=== PATIENT | male | born 1935 | race Caucasian/White ===

== ENCOUNTER 2016-09-22 10:29 | Day surgery (SDC) | payer MEDICARE, OTHER ==
[~2016-09-22] VITALS: Ht 198.1 cm; Wt 134.6 kg
[~2016-09-22 10:29] MED LIST: ALFU10TA2 OR; ASPI81 PO; CALTTAB10 PO; DOCU100T9 PO; EZET10 PO; FERR324T4 PO; FURO1TAB93 PO; LANTUSP SQ; LISI-360 PO; METO100T PO; NOVORP2 SC; OMEP20TA OR; PHEN100 PO; PLAV75TA OR; TAB-TAB PO; VITA500S3 SL
[2016-09-22] MEDS ORDERED: SODIUM CHLORIDE 0.9% FLUSH 10 ML FLUSH IV FLUSH PRN (11:00)
[2016-09-22] MEDS ORDERED: SODIUM BICARBONATE 100 MEQ in D5W 1000 ML IV SCH (11:00)
[2016-09-22 11:15] VITALS: BP 154/72; PULSE 58; RESP 18; TEMP 98.5; O2SAT 96
[2016-09-22 11:21] LABS: AUTOMATED NEUTROPHIL # 4.1 TH/MM3 (1.8-7.7); BASOPHIL # 0.1 TH/MM3 (0-0.2); BASOPHIL % 0.8 % (0.0-2.0); EOSINOPHIL # 0.2 TH/MM3 (0-0.4); HEMATOCRIT 36.5 % (39.0-51.0); HEMO FLAGS DIFF FINAL; LYMPH % 23.1 % (9.0-44.0); LYMPHOCYTE # 1.4 TH/MM3 (1.0-4.8); MEAN CELL VOLUME 91.3 FL (80.0-100.0); MEAN CORPUSCULAR HEMOGLOBIN 31.7 PG (27.0-34.0); MEAN CORPUSCULAR HGB CONC 34.7 % (32.0-36.0); NEUT % 65.1 % (16.0-70.0); PLATELET COUNT 164 TH/MM3 (150-450); RED CELL DISTRIBUTION WIDTH 13.6 % (11.6-17.2); WHITE BLOOD COUNT 6.2 TH/MM3 (4.0-11.0)
[2016-09-22] MEDS ORDERED: INSU100V2 SQ (11:27)
[2016-09-22] MEDS ORDERED: LANTUS2P SQ (11:27)
[2016-09-22] MEDS ORDERED: ALFU10TA2 PO (11:27)
[2016-09-22] MEDS ORDERED: ASPI1TAB69 PO (11:27)
[2016-09-22] MEDS ORDERED: METO50TA PO (11:27)
[2016-09-22] MEDS ORDERED: MULT1TAB84 PO (11:27)
[2016-09-22] MEDS ORDERED: LOSA100T PO (11:27)
[2016-09-22] MEDS ORDERED: ATOR40TA16 PO (11:27)
[2016-09-22] MEDS ORDERED: OMEP20TA PO (11:27)
[2016-09-22] MEDS ORDERED: ZETI10TA5 PO (11:27)
[2016-09-22] MEDS ORDERED: REFR0.5D9 EACH EYE (11:27)
[2016-09-22] MEDS ORDERED: CYAN100017 PO (11:27)
[2016-09-22] MEDS ORDERED: DILA100C PO (11:27)
[2016-09-22] MEDS ORDERED: FURO1TAB60 PO (11:27)
[2016-09-22 11:28] LABS: PROTHROMBIN TIME - PATIENT 10.9 SEC (9.8-11.6)
[2016-09-22 11:44] LABS: BICARBONATE 27.5 MEQ/L (21.0-32.0); POTASSIUM 4.4 MEQ/L (3.5-5.1)
[2016-09-22] MEDS ORDERED: IOHEXOL 350 MG/ML 50 ML BTL (for Cath Lab) OTHER ONE (13:35)
[2016-09-22] MEDS ORDERED: IOHEXOL 350 MG/ML 100 ML BTL (for Cath Lab) OTHER ONE (13:35)
[2016-09-22] MEDS ORDERED: MIDAZOLAM HCL 5 MG/5 ML VIAL ONE (13:37)
[2016-09-22] MEDS ORDERED: HEPARIN-NS/PF INJ 500 ML ONE (13:37)
--- NOTE | 2016-09-22 19:18 | MA ---
cc: MARTINEZ LEAHY DATE 09/22/2016 Angio report PREOPERATIVE DIAGNOSIS History of wounded bilateral lower extremities. POSTOPERATIVE DIAGNOSIS History of wounded bilateral lower extremities. PROCEDURE Aortogram and selective bilateral extremity arteriogram. PROCEDURE DETAILS I got access to the right common femoral artery using duplex ultrasound. I used the Seldinger technique and exchanged for a 5-Irish sheath and advanced an Omni flush catheter in the abdominal aorta and shot an AP aortogram. I pulled my catheter and shot pelvic oblique arteriograms. I then the left lower extremity with my catheter and then pulled the catheter over a wire and then selected at the right lower extremity. At the end of the procedure we had pulled the catheter out of the right groin and applied pressure. My findings were that the abdominal aorta was widely patent. The bilateral common internal and external iliac arteries appeared to be widely patent. The right common and profunda femoral arteries were patent. The right superficial femoral artery was patent. My catheter was just above the origin of the profunda and superficial femoral artery. The patient appeared to have a right popliteal artery that was patent. It should be noted that the patient did have a lesion at the takeoff of the SFA that was calcified but non-flow limiting. The patient had a single-vessel runoff to the right anterior tibial artery across the level of the ankle, although the patient was moving with restless leg syndrome which made it difficult to get good visualization of the pedal vessels. The left common femoral, profunda, superficial, and femoral arteries were widely patent. The left popliteal artery had a mild to moderate stenosis but did not appear to be flow-limiting. The patient had a single-vessel runoff through the left posterior tibial artery that crossed the level of the ankle. It should be noted that on the left side there was a small fistula noted at the left SFA but with the patient's history of DVT it does not appear to be that significant. 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 So in summary the patient had good inflow and runoff with a popliteal lesion on the left with a single-vessel runoff through the posterior tibial artery. 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 On the right side the patient had single-vessel runoff through the anterior tibial artery. It should be noted that there was movement during the exam. The patient had a history of restless leg syndrome, so the imaging especially on the right side might be suboptimal. DO MONICA Mariscal /4:46 PM /7:02 PM
[2016-09-22] MEDS ORDERED: SODIUM CHLORIDE FLUSH BID IV FLUSH SCH (21:00)
== END 2016-09-22 19:32 | disposition home or self-care (01) ==
LOC: HDOC 10:29 → HDIC 10:30 → HDOC 19:32
PROVIDERS: ATTEND Surgery
DX: I73.9 Peripheral vascular disease, unspecified (principal); I48.91 Unspecified atrial fibrillation; I10 Essential (primary) hypertension; E11.9 Type 2 diabetes mellitus without complications; Z79.01 Long term (current) use of anticoagulants; Z86.718 Personal history of other venous thrombosis and embolism
CPT/HCPCS: 75625; 75716; 80048; 85025; 85610; C1769; C1887; C1893; J1644; J2250; J3010; Q9967

== ENCOUNTER → 2017-10-20 | Outpatient (CLI) | payer MEDICARE, OTHER ==
[2017-10-20 11:41] LABS: BASOPHIL # 0.1 TH/MM3 (0-0.2); BASOPHIL % 0.7 % (0.0-2.0); EOSINOPHIL # 0.3 TH/MM3 (0-0.4); EOSINOPHIL % 4.4 % (0.0-4.0); HEMATOCRIT 36.3 % (39.0-51.0); HEMO FLAGS DIFF FINAL; HEMOGLOBIN 12.4 GM/DL (13.0-17.0); LYMPH % 23.2 % (9.0-44.0); LYMPHOCYTE # 1.8 TH/MM3 (1.0-4.8); MEAN CELL VOLUME 92.8 FL (80.0-100.0); MEAN CORPUSCULAR HEMOGLOBIN 31.7 PG (27.0-34.0); MEAN CORPUSCULAR HGB CONC 34.1 % (32.0-36.0); MEAN PLATELET VOLUME 8.1 FL (7.0-11.0); MONO % 7.2 % (0.0-8.0); MONOCYTE # 0.6 TH/MM3 (0-0.9); NEUT % 64.5 % (16.0-70.0); PLATELET COUNT 186 TH/MM3 (150-450); RED BLOOD COUNT 3.91 MIL/MM3 (4.50-5.90); RED CELL DISTRIBUTION WIDTH 13.8 % (11.6-17.2); WHITE BLOOD COUNT 7.8 TH/MM3 (4.0-11.0)
[2017-10-20 11:57] LABS: APTT (PATIENT) 27.2 SEC (24.3-30.1); INTERNATIONAL NORMALIZED RATIO 1.1 RATIO; PROTHROMBIN TIME - PATIENT 10.7 SEC (9.8-11.6)
[2017-10-20 12:07] LABS: ANION GAP 5 MEQ/L (5-15); BICARBONATE 27.8 MEQ/L (21.0-32.0); BLOOD UREA NITROGEN 32 MG/DL (7-18); CALCIUM 8.7 MG/DL (8.5-10.1); CHLORIDE 103 MEQ/L (98-107); GLOMERULAR FILTRATION RATE 53 ML/MIN (>89); GLUCOSE,FASTING 97 MG/DL (74-99); POTASSIUM 5.9 MEQ/L (3.5-5.1); SODIUM (NA) 136 MEQ/L (136-145)
[2017-10-20 12:09] LABS: BILIRUBIN, URINE NEG (NEG); BLOOD, URINE NEG (NEG); COMMENT (UR) CULT NOT INDICATED; CULTURE IF INDICATED CULT NOT INDICATED; GLUCOSE,URINE NEG (NEG); HYALINE CAST, URINE 5 /lpf (RARE); KETONE, URINE NEG (NEG); NITRITE,URINE NEG (NEG); PH, URINE 5.5 (5.0-8.5); SQUAMOUS EPITHELIAL CELL URINE 1 /hpf (0-5); URINE COLOR LIGHT-YELLOW (YELLW/STRAW); URINE LEUKOCYTE ESTERASE NEG (NEG)
== END ==
LOC: CPRE 10:49
DX: Z01.812 Encounter for preprocedural laboratory examination (principal); Z01.818 Encounter for other preprocedural examination; I65.22 Occlusion and stenosis of left carotid artery
CPT/HCPCS: 36415; 71046; 80048; 81001; 85025; 85610; 85730

== ENCOUNTER 2017-10-25 08:00 | Inpatient (IN) | payer MEDICARE, OTHER ==
[~2017-10-25] VITALS: Ht 195.6 cm; Wt 136.5 kg
[~2017-10-25 08:00] MED LIST changes: -ALFU10TA2 OR; +ALFU10TA2 PO; -ASPI81 PO; +ATOR40TA16 PO; -CALTTAB10 PO; +CELE200C PO; +CLAR10CA3 PO; +CYAN1TAB24 PO; +DILA100C PO; -DOCU100T9 PO; +ECASA81 PO; -EZET10 PO; -FERR324T4 PO; +FURO1TAB60 PO; -FURO1TAB93 PO; +INSU100V2 SQ; +LANTUS2P SQ; -LANTUSP SQ; -LISI-360 PO; +LOSA100T PO; -METO100T PO; +METO50TA PO; -NOVORP2 SC; +OMEGCAP PO; -OMEP20TA OR; +OMEP20TA93 PO; +ONETAB22 PO; -PHEN100 PO; -PLAV75TA OR; +REFR0.5D9 EACH EYE; -TAB-TAB PO; -VITA500S3 SL
[2017-10-25] MEDS ORDERED: INSULIN HUMAN REGULAR 1,000 UNITS/10 ML VIAL SQ PRN (08:30)
[2017-10-25] MEDS ORDERED: LACTATED RINGER'S 1000 ML IV PRN (08:30)
[2017-10-25] MEDS ORDERED: POVIDONE IODINE 5% (ANTISEPSIS KIT) 4 APPLICATIONS EACH NARE PRN (08:30)
[2017-10-25] MEDS ORDERED: SODIUM CHLORID 0.9% 500 ML IV PRN (08:30)
[2017-10-25] MEDS ORDERED: CHLORHEXIDINE GLUCONATE 2 % 1 PACK (2 CLOTHS) TOPICAL PRN (08:30)
[2017-10-25] MEDS ORDERED: METOPROLOL TARTRATE 25 MG TAB PO PRN (08:30)
[2017-10-25] MEDS ORDERED: HEPARIN SODIUM - IV 10,000 UNITS/10 ML VIAL ONE ×2 (08:34→10:38)
[2017-10-25] MEDS ORDERED: THROMBIN (TOPICAL) 20,000 UNIT SPRAY KIT ONE (08:34)
[2017-10-25] MEDS ORDERED: HEPARIN-NS/PF INJ 500 ML ONE (08:34)
[2017-10-25] MEDS ORDERED: PROTAMINE SULFATE 50 MG/5 ML VIAL ONE ×2 (08:34→11:13)
[2017-10-25] MEDS ORDERED: BUPIVACAINE HCL PF 0.5% 30 ML VIAL ONE (08:34)
[2017-10-25] MEDS ORDERED: ceFAZolin 2 GM PREMIX 50 ML ONE (08:35)
--- NOTE | 2017-10-25 08:44 | PD.VS.PN ---
Pre-operative Note Pre-operative diagnosis: asymptomatic high grade LEFT carotid stenosis Planned procedure: L CEA Interval History: Pt has been feeling well, no changes in health that would preclude OR Labs: Hct 36 plt 186 INR 1.1 creatinine 1.3 Blood: T&S EKG: pending Imaging: CTA ([facility]) reviewed - >80% L ICA stenosis, <50% R ICA stenosis Orders: NPO Ancef 2g IV OCTOR Post-operative destination: CVICU Operative site marked: Yes Consent: Informed consent has been obtained from Dion Yanez. I have explained the procedure in detail and discussed the risks, benefits, and potential complications. All questions have been answered. Patient contact information: Daughter (Mrs. Diaz) [phone] Aj Schaffer MD October 25, 2017 08:44
[2017-10-25] MEDS ORDERED: NITROGLYCERIN INJ 5 ML ONE (09:37)
[2017-10-25] MEDS ORDERED: ACETAMINOPHEN 1000 MG/100 ML 100 ML IV ONE (09:37)
[2017-10-25] MEDS ORDERED: NEOSTIGMINE 5 MG/5 ML SYRINGE IV PUSH ONE (10:44)
[2017-10-25] MEDS ORDERED: GLYCOPYRROLATE 1 MG/5 ML SYRINGE IV PUSH ONE (10:44)
[2017-10-25] MEDS ORDERED: LIDOCAINE HCL 1% PF 5 ML SYRINGE OTHER ONE (10:44)
[2017-10-25] MEDS ORDERED: SODIUM CHLORID 0.9% 500 ML INJ 500 ML IV ONE (10:44)
[2017-10-25] MEDS ORDERED: ePHEDrine/NS 25 MG/5 ML SYRINGE IV ONE (10:44)
[2017-10-25] MEDS ORDERED: ROCURONIUM INJ 50 MG/5 ML SYRINGE IV PUSH ONE (10:44)
[2017-10-25] MEDS ORDERED: SODIUM CHLOR 0.9% 250 ML INJ 250 ML IV ONE (10:44)
[2017-10-25] MEDS ORDERED: PROPOFOL 200 MG/20 ML AMP IV ONE (10:44)
[2017-10-25] MEDS ORDERED: ONDANSETRON HCL 4 MG/2 ML VIAL IV ONE (10:44)
[2017-10-25] MEDS ORDERED: PHENYLEPH/NS 1000 MCG/10 ML SYR IV ONE (10:44)
[2017-10-25] MEDS ORDERED: NORMOSOL R INJ 2,000 ML IV ONE (10:44)
--- NOTE | 2017-10-25 11:34 | HHI.PR ---
cc: Aj Schaffer MD Immediate Post Op Note Procedure Date: October 25, 2017 Pre Op Diagnosis: Asymptomatic high grade LEFT carotid stenosis Post Op Diagnosis: Asymptomatic high grade LEFT carotid stenosis Surgeon: Aj Schaffer Cardiac Nurse Specialist(s): Alivia Hauser Procedure: L CA Findings: calcific plaque Additional Information: good Doppler signals ICA/ECA after endarterectomy Complications: none apparent Specimen(s) removed: plaque, not for pathology Estimated blood loss: 150mL Anesthesia: General Drains: None Fluids: 1500mL IVF Urinary Output (mLs): 650 Patient to: CVICU Patient Condition: Good Implant/Devices: SEE IMPLANT LOG (if applicable) Date/Time of Procedure: SEE SURGICAL CARE RECORD Aj Schaffer MD October 25, 2017 11:34
[2017-10-25] MEDS ORDERED: BISACODYL 10 MG SUPP RECTAL PRN (11:45)
[2017-10-25] MEDS ORDERED: LACTULOSE SYRUP 20 GM/30 ML CUP PO PRN (11:45)
[2017-10-25] MEDS ORDERED: HYDROmorphone HCL 2 MG TAB PO PRN (11:45)
[2017-10-25] MEDS ORDERED: DEXTROSE 50% IN WATER 50 ML VIAL(D50) IV PUSH PRN (11:45)
[2017-10-25] MEDS ORDERED: GLUCAGON 1 MG/ML VIAL OTHER PRN (11:45)
[2017-10-25] MEDS ORDERED: SENNOSIDES 8.6 MG TAB PO PRN (11:45)
[2017-10-25] MEDS ORDERED: MAGNESIUM HYDROXIDE SUSP 30 ML CUP PO PRN (11:45)
[2017-10-25 12:00] VITALS: PULSE 56
[2017-10-25] MEDS: INSULIN ASPART SUPPLEMENTAL SCALE SQ SCH ×3 (12:00→20:59)
[2017-10-25] MEDS ORDERED: hydrALAZINE HCL 20 MG/ML VIAL IV PUSH PRN (13:00)
[2017-10-25] MEDS ORDERED: ENALAPRILAT 1.25 MG/ML VIAL IV PUSH PRN (13:00)
[2017-10-25] MEDS ORDERED: LABETALOL HCL 100 MG/20 ML VIAL IV PUSH PRN (13:00)
--- NOTE | 2017-10-25 13:02 | MP ---
cc: Aj Schaffer MD DATE OF OPERATION: PREOPERATIVE DIAGNOSIS: High-grade left carotid stenosis, asymptomatic. POSTOPERATIVE DIAGNOSIS: High-grade left carotid stenosis, asymptomatic. PROCEDURE PERFORMED: Left carotid endarterectomy. ATTENDING SURGEON: Aj Schaffer MD PROFESSOR OF PHYSICAL EDUCATION SURGEON: Aj Leone RN ANESTHESIA: General. INDICATIONS: Mr. Yanez is an 82-year-old gentleman with a history of right carotid endarterectomy and high-grade left carotid stenosis. He was taken to the operating room for surgical carotid endarterectomy. DESCRIPTION OF PROCEDURE: Informed consent was obtained from the patient. He was taken to the operating room and placed supine on the operating room table. An appropriate timeout was taken to ensure the patient's identity, the operative site and planned procedure. The administration of 2 grams of Ancef was initiated prior to skin incision and will be discontinued after a single preoperative dose. Everyone in the room agreed with timeout and we proceeded. His left neck was prepped and draped. An incision was made along the anterior border of the sternocleidomastoid and carried down through subcutaneous tissue with electrocautery. The jugular vein was identified, dissected and retracted posteriorly, thereby exposing the carotid artery. The common carotid artery, internal carotid artery, external carotid artery and superior thyroid artery were all separately dissected free. The patient was systemically heparinized and ACT was confirmed to be greater than 250. Distal and proximal control of the carotid artery was obtained with profunda clamps and a longitudinal arteriotomy was made with 11 blade, extended with Naldo scissors. The artery was endarterectomized without difficulty. A nice endpoint was obtained. Tacking sutures were used to tack down the distal ICA plaque posteriorly. Bovine pericardium was brought up onto the field and sewn on as a patch using running 5-0 Prolene suture. At the completion, it was flushed and made hemostatic with several repair sutures. There was a nice Doppler signal in the ICA and ECA, and the clamps were then sequentially released. During the entire cross clamping of the carotid, there were no EEG changes. The heparin was reversed with protamine. The wound was made hemostatic, infiltrated with Marcaine and closed with 2-0 Polysorb, 3-0 Polysorb and 4-0 Monocryl. The sponge and needle counts were correct at the end of the case. I was present, scrubbed, and performed the entire procedure. MD ANNELIESE Posey , 12:41 PM , 01:01 PM
--- NOTE | 2017-10-25 13:19 | PD.CONS ---
[facility] Service Critical Care Medicine Consult Requested By Dr. Schaffer Reason for Consult Critical care management Primary Care Physician Wale Diaz MD History of Present Illness 82-year-old male. Date of admission 10/25/2017. Past medical history includes diabetes mellitus with neuropathy, allergic rhinitis, coronary artery disease status post stent 2, subdural hematoma with subsequent hygroma with guy hole drainage, seizure disorder NOS, hypertension, BPH, gastroesophageal reflux disease, hyperlipidemia and allergic rhinitis. Patient's last hemoglobin A1c was 6.7. Patient presents to [facility] for routine left carotid endarterectomy for symptomatic high-grade left CVA. Of note patient had a right carotid endarterectomy in the remote past. Surgery was unremarkable. 1600 crystalloid. 150 cc EBL. 600 cc urine.. Patient is currently seen in room 447. Patient is awake and oriented to person place and time. Patient says he "sees better" at the present time. Blood pressure slightly elevated. Goal 140-160 per verbal report. Denies chest pain , shortness of breath, abdominal pain, nausea, vomiting Review of Systems Constitutional: DENIES: Diaphoretic episodes, Fatigue, Fever Endocrine: DENIES: Polydipsia, Polyuria Eyes: DENIES: Blurred vision, Diplopia Ears, nose, mouth, throat: DENIES: Tinnitus Respiratory: DENIES: Apneas, Sputum production, Shortness of breath Cardiovascular: DENIES: Chest pain Gastrointestinal: DENIES: Abdominal pain Genitourinary: DENIES: Urgency, Hematuria Musculoskeletal: DENIES: Joint pain, Back pain Integumentary: DENIES: Abnormal pigmentation Hematologic/lymphatic: DENIES: Bruising Immunologic/allergic: DENIES: Eczema Neurologic: DENIES: Abnormal gait, Headache Psychiatric: DENIES: Anxiety, Confusion, Mood changes Past Family Social History Allergies: Coded Allergies: atorvastatin (Unverified Allergy, Unknown, 10/25/17) cimetidine (Unverified Allergy, Unknown, 10/25/17) cyclobenzaprine (Unverified Allergy, Unknown, 10/25/17) niacin (Unverified Allergy, Unknown, FLUSHING, 10/25/17) simvastatin (Unverified Allergy, Unknown, 10/25/17) terazosin (Unverified Allergy, Unknown, 10/25/17) topiramate (Unverified Allergy, Unknown, 10/25/17) digoxin (Unverified Adverse Reaction, Severe, SLOWS HEART RATE, 10/25/17) Uncoded Allergies: NEXIUM (Allergy, Severe, I ALMOST ; BRADYCARDIA, 10/20/17) SEMICLIVINE (Allergy, Unknown, 07/22/06) Past Medical History Allergic rhinitis Coronary artery disease Essential hypertension Hyperlipidemia Seizure disorder NOS BPH Diabetes mellitus with neuropathy Gastroesophageal reflux disease Past Surgical History Right carotid enterectomy with IVC filter placement Lumbar laminectomy 3 History of subdural hematoma status post craniotomy with bur hole placement for subdural hygroma Right colon resection Reported Medications Aspirin 325 mg p.o. daily Alfuzosin 10 mg p.o. daily Atorvastatin 40 mg p.o. daily Fosphenytoin 200 mg p.o. twice daily Insulin glargine 47 units subcu at night Humulin R sliding scale insulin Metoprolol tartrate 50 mg p.o. twice daily Fosphenytoin extended release 200 mg p.o. twice daily Multivitamin 1 tablet p.o. daily Losartan 100 mg p.o. daily Loratadine 10 mg p.o. daily Furosemide 40 mg p.o. daily Celecoxib 100 mg p.o. daily Omeprazole 20 mg p.o. daily Cyanocobalamin 1000 mcg p.o. daily Active Ordered Medications Reviewed in EMR Family History Mother and father is noncontributory/not defined. Denies any current medical issues concerning his mom and father they are both . Social History Ex-tobacco use. Quit 1991. No significant alcohol use. No illicit drug use. Physical Exam Vital Signs Vital Signs Date Time Temp Pulse Resp B/P (MAP) Pulse Ox O2 Delivery O2 Flow Rate FiO2 10/25/17 12:00 56 10/25/17 09:15 97.8 61 20 207/82 (123 98 Physical Exam GENERAL: 82-year-old male currently on room air in no acute distress SKIN: Warm and dry. HEAD: Atraumatic. Normocephalic. EYES: Pupils equal and round. No scleral icterus. No injection or drainage. ENT: No nasal bleeding or discharge. Mucous membranes pink and moist. NECK: Trachea midline. No JVD. Large incision over the left neck is sutured with mild postop changes. CARDIOVASCULAR: Bradycardic, RR. S1, S2. No S4. Without murmur RESPIRATORY: No accessory muscle use. Clear to auscultation. Breath sounds equal bilaterally. GASTROINTESTINAL: Abdomen soft, non-tender, nondistended. Hypoactive bowel sounds are appreciated. MUSCULOSKELETAL: Extremities without significant peripheral edema. Peripheral neuropathy stocking glove distribution lower extremity's. Chronic venous stasis. NEUROLOGICAL: Awake and alert. No obvious cranial nerve deficits. Motor grossly within normal limits. Five out of 5 muscle strength in the arms and legs. Normal speech. Septic Shock Reassessment Septic shock perfusion: reassessment completed Assessment and Plan Assessment and Plan Neuro/Psych: Diabetic neuropathy Allergic rhinitis Seizure disorder NOS History of subdural hematoma/MRSA with subsequent bur hole for subdural hygroma Oxycodone 5 mg p.o. every 4 hours as needed pain 1 through 5 Hydromorphone 2 mg IV every 4 hours as needed pain 6-10 Patient is on celecoxib 200 mg daily at home for pain management Continue loratadine 10 mg for allergic rhinitis Continue fosphenytoin 200 mg p.o. twice daily. Check phenytoin level in a.m. CV: Hypertension/essential Hyperlipidemia Sinus bradycardia Home medications metoprolol tartrate 50 mg twice daily -hold bradycardic, losartan 100 mg daily have been resumed. Goal systolic blood pressure between 140-160 As needed enalaprilat, labetalol and hydralazine Resume atorvastatin 40 mg p.o. daily/home medication Continue aspirin 81 mg daily. On 325 mg daily at home Continue furosemide 40 mg p.o. daily Resp: Prior history of tobaccoism/quit 1991 Nasal cannula to maintain saturations greater than or equal 92% Incentive spirometry while awake As needed albuterol aerosols every 2 hours as needed dyspnea GI: Gastroesophageal reflux disease ADA/heart healthy diet Continue omeprazole 20 mg p.o. daily Bowel regimen per vascular surgery : BPH Continue alfuzosin 10 mg daily/home medication Endo: Diabetes mellitus At home on insulin glargine 47 units at night and Humulin R sliding scale insulin. We will decrease to 15 units at night and place on knobby log sliding scale insulin/low regimen Accu-Cheks before meals/at bedtime Renal: Chronic kidney disease stage II-III a Follow-up BMP in a.m. Heme: Check CBC in a.m. ID: Patient received 2 g cefazolin in ED. Postoperative antibiotics per vascular surgery MSK: Continue cyanocobalamin 1000 m p.o. daily PT evaluate and treat FEN: Replace electrolytes as clinically indicated Access -utilize peripheral IV. Central line if indicated -Left radial arterial line placed in OR 10/25 Prophylaxis- GI -omeprazole -DVT --SCD/enoxaparin Level 2 consult Code Status Full code Discussed Condition With Patient. Care plan discussed and all questions answered. Justin Maki MD October 25, 2017 13:19
[2017-10-25 15:00] VITALS: PULSE 48
[2017-10-25] MEDS ORDERED: RESP: ALBUTEROL 2.5 MG/3 ML NEB (PRN) NEB (15:00)
[2017-10-25 19:00] VITALS: BP 125/41; PULSE 49; PULSE 58; RESP 16; TEMP 97.6; O2SAT 94
[2017-10-25] MEDS: DOCUSATE SODIUM 50 MG/SENNA 8.6 MG TAB PO SCH (20:58)
[2017-10-25] MEDS: PHENYTOIN SODIUM 100 MG CAP PO SCH (20:58)
[2017-10-25] MEDS: METOPROLOL TARTRATE 50 MG TAB PO SCH (20:59)
[2017-10-25] MEDS ORDERED: INSULIN DETEMIR 100 UNITS/ML VIAL SQ SCH ×2 (21:00)
[2017-10-25] MEDS ORDERED: ATORVASTATIN 40 MG TAB PO SCH (21:00)
[2017-10-25] MEDS ORDERED: FAMOTIDINE 20 MG TAB PO SCH (21:00)
[2017-10-25 23:00] VITALS: BP_SYST 126; BP_SYST 95; BP_DIAS 49; PULSE 59; RESP 17; TEMP 98; O2SAT 95
[2017-10-25 23:38] VITALS: PULSE 55
[2017-10-26 03:44] VITALS: BP_SYST 135; BP_SYST 149; BP_DIAS 54; BP_DIAS 60; PULSE 55; PULSE 60; RESP 15; TEMP 97.9; O2SAT 96
[2017-10-26 05:35] LABS: HEMATOCRIT 32.9 % (39.0-51.0); HEMOGLOBIN 11.4 GM/DL (13.0-17.0); MEAN CELL VOLUME 92.2 FL (80.0-100.0); MEAN CORPUSCULAR HEMOGLOBIN 31.9 PG (27.0-34.0); MEAN CORPUSCULAR HGB CONC 34.6 % (32.0-36.0); MEAN PLATELET VOLUME 8.1 FL (7.0-11.0); PLATELET COUNT 148 TH/MM3 (150-450); RED BLOOD COUNT 3.57 MIL/MM3 (4.50-5.90); RED CELL DISTRIBUTION WIDTH 13.4 % (11.6-17.2); WHITE BLOOD COUNT 6.8 TH/MM3 (4.0-11.0)
[2017-10-26 05:58] LABS: BICARBONATE 27.3 MEQ/L (21.0-32.0); CALCIUM 7.9 MG/DL (8.5-10.1); CREATININE 1.09 MG/DL (0.60-1.30)
[2017-10-26 05:59] LABS: PHENYTOIN (DILANTIN) 11.8 MCG/ML (10.0-20.0)
[2017-10-26 07:00] VITALS: BP_SYST 163; BP_SYST 168; BP_DIAS 56; BP_DIAS 69; PULSE 50; PULSE 69; RESP 16; TEMP 98.4; O2SAT 96
[2017-10-26] MEDS: INSULIN ASPART SUPPLEMENTAL SCALE SQ SCH (08:00)
--- NOTE | 2017-10-26 08:58 | PD.VS.PN ---
Subjective POD #: 1 Procedure(s): LEFT CEA Subjective/Hospital Course 82/M S/P L CEA POD 1 Pt w/o headache Pt with left sided facial numbness/facial droop Pt able to swallow and eat w/o difficulty Pt voiding Objective Vitals/I&O Date Time Temp Pulse Resp B/P (MAP) Pulse Ox O2 Delivery O2 Flow Rate FiO2 10/26/17 07:00 98.4 50 16 163/69 (100) 96 168/56 (93) 10/26/17 07:00 69 10/26/17 03:44 97.9 60 15 135/54 (81) 96 149/60 (89) 10/26/17 03:44 55 10/25/17 23:38 55 10/25/17 23:00 98.0 59 17 95/49 (64) 95 126/49 (74) 10/25/17 19:00 58 10/25/17 19:00 97.6 49 16 125/41 (69) 94 125/41 (69) 10/25/17 17:31 16 10/25/17 15:00 48 10/25/17 12:00 56 10/25/17 09:15 97.8 61 20 207/82 (123) 98 10/26/17 10/26/17 10/26/17 07:00 15:00 23:00 Intake Total 740 ml Output Total 860 ml Balance -120 ml Exam: GENERAL: A&OX3,NAD,GCS15 SKIN: Warm and dry. Incision to left side of neck with surgical glue closure Incision well approximated w/o S/D Mild erythema noted at the incision line HEAD: Normocephalic. EYES: No scleral icterus. No injection or drainage. NECK: Supple, trachea midline. No JVD or lymphadenopathy. CARDIOVASCULAR: RRR, + S1,S2 RESPIRATORY: BS CTA GASTROINTESTINAL: Abdomen S/NT Palpable R/L Radial pulse Laboratory Laboratory Tests Test 10/26/17 04:25 White Blood Count 6.8 Red Blood Count 3.57 Hemoglobin 11.4 Hematocrit 32.9 Mean Corpuscular Volume 92.2 Mean Corpuscular Hemoglobin 31.9 Mean Corpuscular Hemoglobin Concent 34.6 Red Cell Distribution Width 13.4 Platelet Count 148 Mean Platelet Volume 8.1 Blood Urea Nitrogen 17 Creatinine 1.09 Random Glucose 132 Calcium Level 7.9 Sodium Level 139 Potassium Level 4.4 Chloride Level 106 Carbon Dioxide Level 27.3 Anion Gap 6 Estimat Glomerular Filtration Rate 65 Phenytoin (Dilantin) Level 11.8 Assessment and Plan Assessment: (1) Status post carotid endarterectomy (2) Bilateral carotid artery disease Plan 82/M S/P L CEA POD 1 Doing well w/o c/o headache Pt with marginal Left sided facial numbness and droop Pt eating and voiding w/o difficulty Plan D/C A Line Pt clear for D/C Discussed post operative care and management w/ pt Arranged out pt f/u with a surveillance carotid duplex and IMER Katerin Jenkins NP [facility] [phone] Katerin Jenkins [facility] October 26, 2017 08:58
[2017-10-26] MEDS ORDERED: LORATADINE 10 MG TAB PO SCH (09:00)
[2017-10-26] MEDS: METOPROLOL TARTRATE 50 MG TAB PO SCH (09:00)
[2017-10-26] MEDS ORDERED: MULTIVITAMINS/MINERALS THERAPEUTIC TAB PO SCH (09:00)
[2017-10-26] MEDS ORDERED: CELECOXIB 200 MG CAP PO SCH (09:00)
[2017-10-26] MEDS ORDERED: ASPIRIN EC 81 MG TABEC PO SCH (09:00)
[2017-10-26] MEDS ORDERED: CYANOCOBALAMIN 1,000 MCG TAB PO SCH (09:00)
[2017-10-26] MEDS ORDERED: FUROSEMIDE 40 MG TAB PO SCH (09:00)
[2017-10-26] MEDS ORDERED: ASPIRIN 325 MG TAB PO SCH (09:00)
[2017-10-26] MEDS ORDERED: LOSARTAN 50 MG TAB PO SCH (09:00)
[2017-10-26] MEDS ORDERED: OMEPRAZOLE 20 MG PO SCH (09:00)
[2017-10-26] MEDS ORDERED: TAMSULOSIN HCL 0.4 MG CAP PO SCH (09:00)
[2017-10-26] MEDS ORDERED: OXYC1CAP PO (09:01)
[2017-10-26] MEDS: PHENYTOIN SODIUM 100 MG CAP PO SCH (09:08)
[2017-10-26] MEDS: DOCUSATE SODIUM 50 MG/SENNA 8.6 MG TAB PO SCH (09:08)
--- NOTE | 2017-10-26 09:11 | PD.VS.DC ---
Discharge Summary Admission Date: October 25, 2017 at 08:00 Discharge Date: October 26, 2017 Admission Diagnosis: (1) Bilateral carotid artery disease Discharge Diagnosis: (1) Status post carotid endarterectomy ICD Codes: Z98.890 - Other specified postprocedural states (2) Bilateral carotid artery disease ICD Codes: I77.9 - Disorder of arteries and arterioles, unspecified Brief History from admission 82/M with a PMH of asymptomatic high grade LEFT carotid stenosis Procedure(s): LEFT CEA Significant Findings GENERAL: A&OX3,NAD,GCS15 SKIN: Warm and dry. Incision to left side of neck with surgical glue closure Incision well approximated w/o S/D Mild erythema noted at the incision line HEAD: Normocephalic. EYES: No scleral icterus. No injection or drainage. NECK: Supple, trachea midline. No JVD or lymphadenopathy. CARDIOVASCULAR: RRR, + S1,S2 RESPIRATORY: BS CTA GASTROINTESTINAL: Abdomen S/NT Palpable R/L Radial pulse Laboratory Tests Test 10/26/17 04:25 Red Blood Count 3.57 MIL/MM3 (4.50-5.90) Hemoglobin 11.4 GM/DL (13.0-17.0) Hematocrit 32.9 % (39.0-51.0) Platelet Count 148 TH/MM3 (150-450) Random Glucose 132 MG/DL (74-106) Calcium Level 7.9 MG/DL (8.5-10.1) Estimat Glomerular Filtration Rate 65 ML/MIN (>89) Hospital Course: 82/M with a hx of asymptomatic high grade LEFT carotid stenosis Pt s/p LEFT CEA POD 1 Doing well w/o c/o headache Pt with marginal Left sided facial numbness and droop Pt eating and voiding w/o difficulty Pt clear for d/c Arranged out pt f/u in 1M with a surveillance Carotid duplex and an IMER Allergies Coded Allergies Type Severity Reaction Last Updated Verified atorvastatin Allergy Unknown 10/25/17 No cimetidine Allergy Unknown 10/25/17 No cyclobenzaprine Allergy Unknown 10/25/17 No niacin Allergy Unknown FLUSHING 10/25/17 No simvastatin Allergy Unknown 10/25/17 No terazosin Allergy Unknown 10/25/17 No topiramate Allergy Unknown 10/25/17 No digoxin Adverse Reaction Severe SLOWS HEART RATE 10/25/17 No Uncoded Allergies Type Severity Reaction Last Updated Verified NEXIUM Allergy Severe I ALMOST ; BRADYCARDIA 10/20/17 SEMICLIVINE Allergy Unknown 07/22/06 10/24/17 10/24/17 10/25/17 10/25/17 10/26/17 10/26/17 06:00 18:00 06:00 18:00 06:00 18:00 Intake Total 2300 ml 740 ml Output Total 1480 ml 860 ml Balance 820 ml -120 ml Intake Oral 800 ml 740 ml Other 1500 ml Output Urine Total 1330 ml 860 ml Estimated Blood Loss 150 ml # Bowel Movements 0 0 Laboratory Tests Test 10/26/17 04:25 White Blood Count 6.8 TH/MM3 Red Blood Count 3.57 MIL/MM3 Hemoglobin 11.4 GM/DL Hematocrit 32.9 % Mean Corpuscular Volume 92.2 FL Mean Corpuscular Hemoglobin 31.9 PG Mean Corpuscular Hemoglobin Concent 34.6 % Red Cell Distribution Width 13.4 % Platelet Count 148 TH/MM3 Mean Platelet Volume 8.1 FL Blood Urea Nitrogen 17 MG/DL Creatinine 1.09 MG/DL Random Glucose 132 MG/DL Calcium Level 7.9 MG/DL Sodium Level 139 MEQ/L Potassium Level 4.4 MEQ/L Chloride Level 106 MEQ/L Carbon Dioxide Level 27.3 MEQ/L Anion Gap 6 MEQ/L Estimat Glomerular Filtration Rate 65 ML/MIN Phenytoin (Dilantin) Level 11.8 MCG/ML Orders Procedure Category Date Status Time Type And Screen BBK 10/25/17 Complete 08:19 Electrocardiogram CAV 10/25/17 Complete Lactated Ringer's MED 10/25/17 In Process 1000 Ml Inj (Lr 1000 M 08:30 Sodium Chlorid 0.9% MED 10/25/17 In Process 500 Ml Inj (Ns 500 M 08:30 Metoprolol Tartrate MED 10/25/17 In Process (Lopressor) 08:30 Povidone Iod 5% MED 10/25/17 In Process Antisepsis Kit 08:30 Chlorhexidine 2% MED 10/25/17 In Process Cloth (Chlorhexidine 08:30 Insulin Human Regular MED 10/25/17 In Process Inj (Novolin R Inj 08:30 Protamine Sulfate Inj MED 10/25/17 Complete (Protamine Sulfate 08:34 Heparin Inj (Heparin MED 10/25/17 Complete Inj) 08:34 Bupivacaine Pf 0.5% MED 10/25/17 Complete Inj (Marcaine Pf 0.5 08:34 Thrombin Top [place] MED 10/25/17 Complete (Thrombin Top [place]) 08:34 Heparin-Ns/Pf Inj MED 10/25/17 Complete (Heparin-Ns/Pf Inj) 08:34 Cefazolin 2 Gm Premix MED 10/25/17 Complete (Ancef 2 Gm Premix 08:35 Acetaminophen 1000 MED 10/25/17 Complete Mg/100 Ml (Ofirmev 10 09:37 Nitroglycerin Inj MED 10/25/17 Complete (Nitroglycerin Inj) 09:37 Urinary Catheter SRI 10/25/17 Complete Management 10:00 Heparin Inj (Heparin MED 10/25/17 Complete Inj) 10:38 Protamine Sulfate Inj MED 10/25/17 Complete (Protamine Sulfate 11:13 Am Admit Pre Op Care [facility] 10/25/17 Complete Admit To Inpatient ADMITTING 10/25/17 Transmitted Code Status CODE 10/25/17 Transmitted 11:34 Brothel Keeper / SRI 10/25/17 In Process Telemetry 11:34 Activity Oob Ad Mckenna SRI 10/25/17 In Process 18:00 Activity Bed Rest SRI 10/25/17 In Process 11:[address] Spangler SRI 10/25/17 In Process 11:34 Diet Heart Healthy DIET 10/25/17 Complete Lunch Basic Metabolic Panel LAB 10/26/17 Complete (Bmp) 06:00 Cbc No Diff, Includes LAB 10/26/17 Complete Plts 06:00 Consult Metaphysicist CONS 10/25/17 Transmitted Oxycodone (Roxicodone) MED 10/25/17 In Process 11:45 Hydromorphone MED 10/25/17 In Process (Dilaudid) 11:45 Scd Bilateral/Knee SRI 10/25/17 In Process High 11:34 Docusate Sodium-Senna MED 10/25/17 In Process (Hortensia-Colace) 21:00 Magnesium Hydroxide MED 10/25/17 In Process Liq (Milk Of Magnesi 11:45 Sennosides (Senokot) MED 10/25/17 In Process 11:45 Bisacodyl Supp MED 10/25/17 In Process (Dulcolax Supp) 11:45 Lactulose Liq MED 10/25/17 In Process (Lactulose Liq) 11:45 Inpatient ADMITTING 10/25/17 Transmitted Certification Remove Urinary SRI 10/25/17 In Process Catheter 18:00 ^ Other Nursing Orders SRI 10/25/17 In Process 11:34 Aspirin Ec (Ecotrin MED 10/26/17 In Process Ec) 09:00 Atorvastatin (Lipitor) MED 10/25/17 In Process 21:00 Celecoxib (Celebrex) MED 10/26/17 In Process 09:00 Furosemide (Lasix) MED 10/26/17 In Process 09:00 Loratadine (Claritin) MED 10/26/17 In Process 09:00 Losartan (Cozaar) MED 10/26/17 In Process 09:00 Metoprolol Tartrate MED 10/25/17 In Process (Lopressor) 21:00 Multivitamins-Minerals MED 10/26/17 In Process Therap (Theragran 09:00 Phenytoin (Dilantin) MED 10/25/17 In Process 21:00 Tamsulosin (Flomax) MED 10/26/17 In Process 09:00 Cyanocobalamin MED 10/26/17 In Process (Vitamin B12) 09:00 Patient Own Medication MED 10/26/17 In Process 09:00 Blood Glucose Goal SRI 10/25/17 In Process (Criteria) 11:38 Hypoglycemia 70 Mg/Dl SRI 10/25/17 In Process Or < 11:[address]: Ganga SRI 10/25/17 In Process 11:38 Dextrose 50% In Josephine MED 10/25/17 In Process (Vial) Inj (D50w (Vi 11:45 Glucagon Inj MED 10/25/17 In Process (Glucagon Inj) 11:45 Insulin Aspart MED 10/25/17 In Process Supplemtl Scale 12:00 (Hub Use Only)Inp Phy CONS 10/25/17 Transmitted Cons/Ref Fentanyl Inj MED 10/25/17 Complete (Fentanyl Inj) 12:18 Fentanyl Inj MED 10/25/17 Complete (Fentanyl Inj) 12:18 Insulin Detemir Inj MED 10/25/17 Complete (Levemir Inj) 21:00 Enoxaparin Inj MED 10/26/17 In Process (Lovenox Inj) 11:00 Enalaprilat Inj MED 10/25/17 In Process (Vasotec Inj) 13:00 Labetalol Inj MED 10/25/17 In Process (Trandate Inj) 13:00 Hydralazine Inj MED 10/25/17 In Process (Apresoline Inj) 13:00 Insulin Detemir Inj MED 10/25/17 In Process (Levemir Inj) 21:00 Phenytoin (Dilantin) LAB 10/26/17 Complete 06:00 Diet 1800 Ada Cons DIET 10/25/17 Transmitted Carb Dinner Albuterol Neb MED 10/25/17 In Process (Albuterol Neb) 15:00 Complete Blood Count LAB 10/27/17 Verified With Diff 06:00 Complete Blood Count LAB 10/28/17 Verified With Diff 06:00 Complete Blood Count LAB 10/29/17 Verified With Diff 06:00 Complete Blood Count LAB 10/30/17 Verified With Diff 06:00 Comprehensive LAB 10/27/17 Verified Metabolic Panel 06:00 Comprehensive LAB 10/28/17 Verified Metabolic Panel 06:00 Comprehensive LAB 10/29/17 Verified Metabolic Panel 06:00 Comprehensive LAB 10/30/17 Verified Metabolic Panel 06:00 Magnesium (Mg) LAB 10/27/17 Verified 06:00 Magnesium (Mg) LAB 10/28/17 Verified 06:00 Magnesium (Mg) LAB 10/29/17 Verified 06:00 Magnesium (Mg) LAB 10/30/17 Verified 06:00 Phosphorus (Po4) LAB 10/27/17 Verified 06:00 Phosphorus (Po4) LAB 10/28/17 Verified 06:00 Phosphorus (Po4) LAB 10/29/17 Verified 06:00 Phosphorus (Po4) LAB 10/30/17 Verified 06:00 Attending Discharge DISCHARGE 10/26/17 Transmitted Order Vital Signs Date Time Temp Pulse Resp B/P (MAP) Pulse Ox O2 Delivery O2 Flow Rate FiO2 10/26/17 07:00 98.4 50 16 163/69 (100) 96 168/56 (93) 10/26/17 07:00 69 10/26/17 03:44 97.9 60 15 135/54 (81) 96 149/60 (89) 10/26/17 03:44 55 10/25/17 23:38 55 10/25/17 23:00 98.0 59 17 95/49 (64) 95 126/49 (74) 10/25/17 19:00 58 10/25/17 19:00 97.6 49 16 125/41 (69) 94 125/41 (69) 10/25/17 17:31 16 10/25/17 15:00 48 10/25/17 12:00 56 10/25/17 09:15 97.8 61 20 207/82 (123) 98 Discharge Condition: Good Discharge Disposition: Discharge Home Discharge Instructions: ACTIVITY Activity as tolerated DIET You may resume your regular diabetic diet WOUND CARE You may shower then pat dry incision Avoid applying any creams or ointments to your incision as it may loosen the surgical glue Avoid applying cologne or perfumes as it may irritate your surgical incision Call the office to report any increased swelling, redness or drainage MEDICATIONS You may resume your daily medications You were prescribed a narcotic pain medication- This may cause drowsiness- Avoid driving while taking this medication You were prescribed a narcotic pain medication- This may cause constipation- Take with an over the counter stool softener Any questions or concerns: Call [facility] at [facility] [phone] Katerin Jenkins October 26, 2017 09:11
[2017-10-26] MEDS ORDERED: ENOXAPARIN SODIUM 40 MG/0.4 ML SYRINGE SQ SCH (11:00)
--- NOTE | 2017-10-27 11:56 | EKG ---
Date Performed: 10/25/2017 Time Performed: 08:41:20 PTAGE: 82 years EKG: SINUS BRADYCARDIA BORDERLINE ECG PREVIOUS TRACING : 08/12/2012 07.10 DOCTOR: Doron June Interpretating Date/Time 10/27/2017 11:55:10
== END 2017-10-26 10:45 | disposition home or self-care (01) | DRG 39 ==
LOC: HSDI 08:00 → HCVI 12:02
PROVIDERS: ADMIT Surgery; ATTEND Surgery
PROC: 03UL0KZ Supplement Left Internal Carotid Artery with Nonautologous Tissue Substitute, Open Approach (ICD-10-PCS; 2017-10-25)
PROC: 03CL0ZZ Extirpation of Matter from Left Internal Carotid Artery, Open Approach (ICD-10-PCS; principal; 2017-10-25 09:46)
DX: I65.22 Occlusion and stenosis of left carotid artery (principal); E11.22 Type 2 diabetes mellitus with diabetic chronic kidney disease; E11.40 Type 2 diabetes mellitus with diabetic neuropathy, unspecified; N18.3 Chronic kidney disease, stage 3 (moderate); I12.9 Hypertensive chronic kidney disease with stage 1 through stage 4 chronic kidney disease, or unspecified chronic kidney disease; G40.909 Epilepsy, unspecified, not intractable, without status epilepticus; N40.0 Benign prostatic hyperplasia without lower urinary tract symptoms; K21.9 Gastro-esophageal reflux disease without esophagitis; E78.5 Hyperlipidemia, unspecified; I25.10 Atherosclerotic heart disease of native coronary artery without angina pectoris; J30.9 Allergic rhinitis, unspecified; R00.1 Bradycardia, unspecified; R29.810 Facial weakness; Z79.4 Long term (current) use of insulin; Z87.891 Personal history of nicotine dependence
CPT/HCPCS: 80048; 80185; 85027; 86850; 86900; 86901; 93005; C1768; J0131; J0690; J1644; J1815; J2370; J2405; J2710; J2720; J3010; J7040; J7050; J7120